=== PATIENT | female | born 1980 | race Caucasian/White ===

== ENCOUNTER 2019-12-22 09:13 | Day surgery (SDC) | payer OTHER ==
[2019-12-20 15:58] VITALS: BMI 30.4
[~2019-12-22 09:13] MED LIST: BUPIVACAINE HCL/PF 0.5% (5 MG/ML) 30 ML VIAL IJ ONE
--- NOTE | 2019-12-22 10:11 | HP ---
History & Physical Update - History History: No Change - Physical Physical: No Change - Assessment Assessment: No Change - Plan Plan: No Change (for lap inez possible open; r/b/t/a's d/w the patient in the office and documented in the chart and informed consent obtained today.)
[2019-12-22] MEDS ORDERED: fentaNYL CITRATE 250 MCG/5 ML VIAL ONE (10:47)
[2019-12-22] MEDS ORDERED: MIDAZOLAM HCL 2 MG/2 ML SINGLE DOSE VIAL ONE (10:47)
[2019-12-22] MEDS ORDERED: ROCURONIUM BROMIDE 50 MG/5 ML SYRINGE ONE (10:47)
[2019-12-22] MEDS ORDERED: ceFAZolin SODIUM 1 GM VIAL IVPB ONE (11:05)
[2019-12-22] MEDS ORDERED: BUPIVACAINE HCL/PF 0.5% (5 MG/ML) 30 ML VIAL IJ ONE (12:25)
[2019-12-22] MEDS ORDERED: NEOSTIGMINE METHYLSULFATE 0.5 MG/ML - 10 ML MDV ONE (12:48)
[2019-12-22] MEDS ORDERED: ONDANSETRON 4 MG/2 ML VIAL IVPUSH PRN (13:42)
[2019-12-22] MEDS ORDERED: LACTATED RINGERS SOLUTION 1,000 ML IV SCH (13:45)
--- NOTE | 2019-12-22 14:35 | OP ---
DATE OF OPERATION: 12/22/2019 PREOPERATIVE DIAGNOSIS: Cholelithiasis and chronic cholecystitis. PREOPERATIVE DIAGNOSIS: Cholelithiasis and chronic cholecystitis. PROCEDURE: Laparoscopic cholecystectomy. SURGEON: Vidal Gonzalez MD [employer] AUTHORING SPECIALIST: Rell Leong PA-C ANESTHESIA: General. OPERATIVE FINDINGS: Cholelithiasis and chronic cholecystitis. The rest of the findings were unremarkable. DESCRIPTION OF PROCEDURE: The patient was placed on the operating room table in supine position. After the induction of general anesthesia, the patient's abdomen was prepped with ChloraPrep and draped in sterile fashion. Time-out was taken and then pneumoperitoneum established above the umbilicus using a Veress needle. Once 15 mm of intra-abdominal pressure was obtained, a 5-mm port was placed at the umbilicus. Additional lateral 5-mm ports and a subxiphoid 12-mm port were placed and laparoscopy carried out, and the previously noted findings were observed. The gallbladder was placed on cephalad and lateral traction, and dissection was begun at the neck of the gallbladder where the peritoneum was opened medially and laterally using blunt and sharp dissection and electrocautery. Dissection continued in the triangle of Calot where the cystic duct was identified coursing from the neck of the gallbladder distally to the common bile duct. It was dissected proximally and distally for length. Similarly, the artery was similarly identified and dissected. A critical view of safety was taken, and then the cystic duct divided proximally and distally using Endo Nadiya after it was clipped twice proximally and distally with large hemoclips. The artery was similarly clipped and divided. Hemostasis was checked for and noted to be good and then the gallbladder was removed from the liver bed in a retrograde fashion using electrocautery. Prior to removal from the edge of the liver, hemostasis was again verified and then the gallbladder removed from the edge of the liver, placed in an EndoCatch, and brought out through the subxiphoid port. Pneumoperitoneum was reestablished, hemostasis verified again, and then the 5-mm lateral and subxiphoid ports were removed under laparoscopic vision without evidence of bleeding from the port sites. The umbilical port was removed and the pneumoperitoneum evacuated. All port sites were infiltrated with 0.5% Marcaine and the skin edges closed with 4-0 Biosyn in a subcuticular and continuous fashion. Steri-Strips and Band-Aid dressings were placed and the procedure terminated at this point and the patient aroused from general anesthesia and transferred to the post anesthesia care unit in stable condition awake and alert. ESTIMATED BLOOD LOSS: 20 mL. REPLACEMENTS: Crystalloid. DRAINS: None. SPECIMENS: Gallbladder and contents to Pathology. I, Vidal Gonzalez, was physically present in the operating room from the time the patient was placed on the operating room table until she was transferred to the post anesthesia care unit in [employer]. MD LILLIAN Hodge/[id number] MTDD
[2019-12-22 14:46] VITALS: TEMP 98.7
--- NOTE | 2019-12-22 16:27 | OP ---
Operative Note - Note: Operative Date: 12/22/19 Pre-Operative Diagnosis: Cholelithiasis, chronic cholecystitis Operation: Laproscopic cholecystectomy Post-Operative Diagnosis: Same as Pre-op Surgeon: Vidal Gonzalez Steam Service Inspector: Rell Leong Anesthesiologist/BLOOD COLLECTOR: Olena Herrera Anesthesia: General Estimated Blood Loss (mls): 20 Operative Report Dictated: Yes
--- NOTE | 2019-12-22 16:29 | SURG ---
Surgery Roll Bucker Note Roll Bucker: Rell Leong PA-C Date of Service: 12/22/19 Diagnosis: Cholelithiasis, chronic cholecystitis Procedure: Laproscopic cholecystectomy I was present for the entirety of the operative procedure. For further detail, please refer to operative report. Visit type - Case Type Case Type: Scheduled - Emergency Emergency Visit: No - New patient This patient is new to me today: No - Critical Care Critical Care patient: No
[2019-12-22 17:33] VITALS: BP 111/60; PULSE 96
--- NOTE | 2019-12-25 15:41 | PATH ---
Surgical Pathology Report Patient Name: OBDULIA AVELAR Med. Rec. #: [id number] /Age/Gender: 1980 (Age: 39) / F Account: [id number] Location: [facility] Taken: 12/22/2019 Received: 12/22/2019 Reported: 12/25/2019 Physicians: Vidal Gonzalez MD Specimen(s) Received GALLBLADDER Clinical History Cholelithiasis Final Diagnosis GALLBLADDER, LAPAROSCOPIC CHOLECYSTECTOMY: CHRONIC CHOLECYSTITIS WITH CHOLELITHIASIS. ONE BENIGN PERIDUCTAL LYMPH NODE (0/1). Electronically Signed Niki Hartman M.D. Gross Description Received in formalin, labeled "gallbladder," is a 12.3 x 2.9 x 2.8 cm. gallbladder with a 0.2 cm. in length portion of cystic duct attached. There is a 1.0 cm in greatest dimension periductal lymph node present. The outer surface is lee-pink with a focal defect and varies from smooth to shaggy. The lumen contains green, tenacious bile as well as abundant yellow to black, irregular to fragmented choleliths ranging from 0.1-2.7 cm in greatest dimension. The mucosa is lee-red and focally eroded. The wall of the gallbladder measures 0.1 cm. in thickness. Spindle Carver sections are submitted in one cassette. /12/22/2019 saudi12/22/2019
== END 2019-12-22 17:30 | disposition home or self-care (01) ==
LOC: JASU-SURG 09:13
PROVIDERS: ATTEND Surgery
PROC: 0FT44ZZ Resection of Gallbladder, Percutaneous Endoscopic Approach (ICD-10-PCS; principal; 2019-12-22 11:00)
DX: K80.10 Calculus of gallbladder with chronic cholecystitis without obstruction (principal)
CPT/HCPCS: 84703; 86850; 86900; 86901; 88304-TC; 94760